=== PATIENT | male | born 1970 ===

== ENCOUNTER 2016-12-17 11:36 | Emergency (ER) | payer BC, OTHER ==
[2016-12-17 11:36] VITALS: BMI 38.7
[2016-12-17] MEDS ORDERED: Sodium Chloride 0.9% 1,000 ML IV ONE ×3 (12:02→14:15)
[2016-12-17 12:28] LABS: RBC URINE 1 /hpf (0-3); URINE BILIRUBIN NEGATIVE (NEGATIVE); URINE BLOOD NEGATIVE (NEGATIVE); URINE COLOR Yellow (YELLOW); URINE GLUCOSE (UA) NORMAL (Normal); URINE KETONE NEGATIVE (NEGATIVE); URINE LEUKOCYTE ESTERASE NEG Leu/uL (Negative); URINE PROTEIN NEGATIVE (NEGATIVE); WBC URINE < 1 /hpf (0-5)
[2016-12-17 12:32] LABS: BASO # 0.1 K/uL (0.0-0.2); EOS # 0.2 K/uL (0.0-0.7); EOS % 1.5 % (0.0-4.0); HEMATOCRIT 46.3 % (35.0-51.0); LYMPH # 4.5 K/uL (1.0-4.3); LYMPH % 43.4 % (20.0-40.0); MEAN CELL VOLUME 92.6 fL (80.0-94.0); MEAN CORPUSCULAR HEMOGLOBIN 30.6 pg (27.0-31.0); MEAN PLATELET VOLUME 9.4 fL (7.2-11.7); MONO # 1.4 K/uL (0.0-0.8); MONO % 13.2 % (0.0-10.0); NRBC % 0.4 % (0.0-2.0); RED CELL DISTRIBUTION WIDTH 12.7 % (11.5-14.5); WHITE BLOOD COUNT 10.3 K/uL (4.8-10.8)
[2016-12-17 13:08] LABS: CHLORIDE 100 mmol/L (98-107); SODIUM 133 mmol/L (132-148)
[2016-12-17 13:09] LABS: POTASSIUM 4.3 mmol/L (3.6-5.2)
[2016-12-17 13:12] LABS: ALB/GLOB RATIO 1.2 (1.0-2.1); ALKALINE PHOSPHATASE 60 U/L (38-126); ALT/SGPT 52 U/L (21-72); AST/SGOT 30 U/L (17-59); BILIRUBIN,TOTAL 0.7 mg/dL (0.2-1.3); BLOOD UREA NITROGEN 14 mg/dL (9-20); CALCIUM 8.6 mg/dl (8.6-10.4); CARBON DIOXIDE 21 mmol/L (22-30); GFR AFRICAN-AMERICAN > 60; GLUCOSE,RANDOM 156 mg/dL (75-110); TOTAL PROTEIN 7.7 g/dL (6.3-8.3)
[2016-12-17 13:43] LABS: THYROID STIMULATING HORMONE 1.07 mIU/L (0.46-4.68)
[2016-12-17 14:04] VITALS: O2SAT 100
[2016-12-17 14:50] VITALS: RESP 22
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
[2016-12-17 16:04] VITALS: BP 141/82; PULSE 115; TEMP 98
--- NOTE | 2016-12-17 16:12 | RAD ---
HISTORY: palpitations COMPARISON: No prior. TECHNIQUE: Chest PA and lateral FINDINGS: LUNGS: No active pulmonary disease. PLEURA: No significant pleural effusion identified. No pneumothorax apparent. CARDIOVASCULAR: Normal. OSSEOUS STRUCTURES: No significant abnormalities. VISUALIZED UPPER ABDOMEN: Normal. OTHER FINDINGS: None. IMPRESSION: No active disease.
--- NOTE | 2016-12-19 19:22 | CARD ---
APPROVED REPORT EKG Measurement Heart [id number] <Conclusion> Sinus tachycardia Otherwise normal.
== END 2016-12-17 16:00 | disposition home or self-care (01) ==
LOC: C.ER 11:36
DX: R00.2 Palpitations (principal); I10 Essential (primary) hypertension
CPT/HCPCS: 71020; 80053; 81001; 82948; 84443; 84484; 85025; 85378; 96360; 96361; 99285; G0480; J7040